=== PATIENT | female | born 1975 | race Caucasian/White ===

== ENCOUNTER → 2019-09-29 | Outpatient (CLI) | payer BC ==
--- NOTE | 2019-09-30 07:24 | US ---
EXAMINATION TYPE: US transvaginal DATE OF EXAM: 09/29/2019 COMPARISON: NONE CLINICAL HISTORY: 44-year-old female N92.4 Excessive bleeding in the premenopausal period. TECHNIQUE: Transvaginal sonographic images of the pelvis were acquired. Date of LMP: 2 weeks ago FINDINGS: BUSINESS MANAGEMENT PROFESSOR NOTES: Difficult exam due to overlying bowel gas EXAM MEASUREMENTS: Uterus: 8.8 x 4.9 x 5.2 cm Endometrial Stripe: 1.2 cm Right Ovary: 3.0 x 2.3 x 2.0 cm Left Ovary: 2.3 x 1.2 x 1.8 cm 1. Uterus: Anteverted; slightly heterogeneous echotexture of the myometrium 2. Endometrium: wnl 3. Right Ovary: Hypoechoic area visualized measuring 1.6 x 1.1 x 1.3 cm 4. Left Ovary: wnl 5. Bilateral Adnexa: wnl 6. Posterior cul-de-sac: wnl IMPRESSION: 1. Endometrial stripe measuring 1.2 cm thick which correspond to the secretory phase of the menstrual cycle. 2. A 1.6 cm hypoechoic lesion in the right ovary, likely corpus luteum.
== END | disposition home or self-care (01) ==
LOC: RADUSWWP 15:34
PROVIDERS: ATTEND Family Medicine
DX: N83.8 Other noninflammatory disorders of ovary, fallopian tube and broad ligament (principal)
CPT/HCPCS: 76830

== ENCOUNTER → 2020-02-17 | Outpatient (CLI) | payer BC ==
--- NOTE | 2020-02-17 11:13 | MM ---
Reason for exam: clinical finding. Last mammogram was performed 1 year and 10 months ago. History: Family history of breast cancer in maternal grandmother. Ultrasound-guided core biopsy of the right breast, 2014. Took other hormone for 1 month beginning at age 45. Physical Findings: Nurse Summary: 2cm nodule in the left breast at 10 o'clock and a 1cm nodule in the left breast at 4 o'clock (nurse sharri). MG 3D Diag Mammo W/Cad GUANAKO Bilateral CC, MLO, and XCCL view(s) were taken. Prior study comparison: April 14, 2018, mammogram, performed at [facility]. The breast tissue is extremely dense which could obscure a lesion on mammography. No significant new findings when compared with previous films. These results were verbally communicated with the patient and result sheet given to the patient on 02/17/20. ASSESSMENT: Incomplete: need additional imaging evaluation, BI-RAD 0 RECOMMENDATION: Ultrasound of the left breast.
--- NOTE | 2020-02-17 11:14 | USB ---
Reason for exam: additional evaluation requested from abnormal screening. History: Family history of breast cancer in maternal grandmother. Ultrasound-guided core biopsy of the right breast, 2014. Took other hormone for 1 month beginning at age 45. US Breast LT Left limited breast ultrasound including focal area of concern, retroareolar and axilla demonstrates a 3 x 4 x 5mm oval, cystic lesion at 4 o'clock. These results were verbally communicated with the patient and result sheet given to the patient on 02/17/20. ASSESSMENT: Benign, BI-RAD 2 RECOMMENDATION: Routine screening mammogram of both breasts in 1 year.
== END | disposition home or self-care (01) ==
LOC: RADMAMWWP 09:39
PROVIDERS: ATTEND Obstetrics & Gynecology
DX: N63.21 Unspecified lump in the left breast, upper outer quadrant (principal); N63.23 Unspecified lump in the left breast, lower outer quadrant
CPT/HCPCS: 77062; 77066

== ENCOUNTER → 2023-12-19 | Outpatient (CLI) | payer BC ==
--- NOTE | 2023-12-28 14:59 | MM ---
Reason for Exam: Screening (asymptomatic). Last mammogram was performed 3 year(s) and 10 month(s) ago. Patient History: Menarche at age 14. First Full-Term at age 27. Perimenopausal. 2014, Ultrasound-Guided Core Biopsy on the Right side. Maternal grandmother had breast cancer, age 90. Risk Values: Almaz 5 year model risk: 1.4%. NCI Lifetime model risk: 12.3%. Prior Study Comparison: 04/14/2018 Screening Mammogram, [facility]. 02/17/2020 Bilateral Diagnostic Mammogram, [facility]. Tissue Density: The breasts are extremely dense, which lowers the sensitivity of mammography. Findings: Analyzed By CAD. The pattern is symmetrical. There is a core marker in the upper outer right breast. Benign punctate calcifications within the left breast. No significant interval change is evident. No suspicious groups of microcalcifications, spiculated or lobular masses, architectural distortion or other secondary signs of malignancy are mammographically apparent. Overall Assessment: Benign, BI-RAD 2 Management: Screening Mammogram of both breasts in 1 year. A negative mammogram report should not preclude additional follow up of suspicious palpable abnormalities. Patient should continue monthly self breast exam. A clinical breast exam by your physician is recommended on an annual basis and results should be correlated with mammographic findings. Note on Almaz scores and lifetime risk: 1. A Almaz score greater than 3% is considered moderate risk. If this is the case, consider specialist referral to assess eligibility for a risk reducing agent. 2. If overall lifetime risk for the development of breast cancer is 20% or higher, the patient may qualify for future screening with alternating mammogram and breast MRI. [facility], , 12/28/2023 2:56 PM. Electronically signed and approved by: Will Stock D.O. Radiologis
== END | disposition home or self-care (01) ==
LOC: RADMAMWWP 12:50
PROVIDERS: ATTEND Family Medicine
DX: Z12.31 Encounter for screening mammogram for malignant neoplasm of breast
CPT/HCPCS: 77063; 77067